=== PATIENT | male | born 1970 ===

== ENCOUNTER 2020-05-31 20:36 | Emergency (ER) | payer OTHER ==
[2020-05-31 20:46] VITALS: BP 136/74
--- NOTE | 2020-05-31 21:05 | ED Physician Documentation ---
PD HPI OPHTHO - Stated complaint Stated Complaint: RT EYE PX - Chief complaint Chief Complaint: Heent - History obtained from History obtained from: Patient - History of Present Illness Timing - onset: Enter time (17:00), Today Timing - details: Intermittant Pain level now: 2 Location: Right Quality / character: Other (FB sensation) Associated symptoms: FB sensation Contributing factors: Wears glasses. No: Wears contacts Similar symptoms before: Has not had sx before Recently seen: Not recently seen - Additional information Additional information: c/o gradual onset FB sensation right eye today 5 PM while mowing his lawn Review of Systems Constitutional: denies: Fever Eyes: reports: Irritation. denies: Loss of vision, Decreased vision, Photophobia, Discharge PD PAST MEDICAL HISTORY - Past Medical History Past Medical History: No - Past Surgical History Past Surgical History: Yes - Present Medications Home Medications: Ambulatory Orders Medication Instructions Recorded Confirmed Erythromycin Base [Erythromycin 1 applic RIGHTEYE QID #1 oint...g. 05/31/20 Ophthalmic Ointment] - Allergies Allergies/Adverse Reactions: Allergies Allergy/AdvReac Type Severity Reaction Status Date / Time No Known Drug Allergies Allergy Verified 05/31/20 20:52 - Social History Does the pt smoke?: Yes Smoking Status: Current every day smoker Does the pt drink ETOH?: Yes Does the pt have substance abuse?: No - Immunizations Immunizations are current?: Yes PD ED PE NORMAL - Vitals Vital signs reviewed: Yes - General General: Alert and oriented X 3, No acute distress, Well developed/nourished - HEENT HEENT: PERRL, EOMI, Moist mucous membranes PD ED PE EXPANDED - Eyes Eyes: Injected conj/sclera (right eye), Fluorescein uptake (crescentic, small uptake at 9 0'clock position right eye). No: Conj/sclera FB Results - Vitals Vitals: Vital Signs - 24 hr 05/31/20 20:44 Temperature 36.6 C Heart Rate 81 Respiratory 20 Rate Blood Pressure 136/74 H O2 Saturation 97 PD MEDICAL DECISION MAKING - ED course Complexity details: considered differential, d/w patient Departure - Departure Disposition: 01 Home, Self Care Clinical Impression: Corneal abrasion Qualifiers: Encounter type: initial encounter Laterality: right Qualified Code(s): S05.01XA - Injury of conjunctiva and corneal abrasion without foreign body, right eye, initial encounter Condition: Good Instructions: ED Eye Injury Corneal Abrasion Prescriptions: Erythromycin Base [Erythromycin Ophthalmic Ointment] 1 applic JONN BRIAN #1 oint...g. Comments: Follow up with an fiscal assistant within 3-5 days for recheck. If you cannot arrange an appointment, you can follow up with your primary care physician instead. Discharge Date/Time: 05/31/20 21:45
[2020-05-31] MEDS ORDERED: PROPARACAINE 0.5% OPHTH DROPS 15 ML RIGHTEYE STA (21:08)
[2020-05-31] MEDS ORDERED: ERYTHROMYCIN OPHTH OINT 1 GM TUBE RIGHTEYE STA (21:32)
== END 2020-05-31 21:45 | disposition home or self-care (01) ==
LOC: ED 20:36
DX: S05.01XA Injury of conjunctiva and corneal abrasion without foreign body, right eye, initial encounter (principal); X58.XXXA Exposure to other specified factors, initial encounter; Y93.H2 Activity, gardening and landscaping; F17.200 Nicotine dependence, unspecified, uncomplicated
CPT/HCPCS: 99282; 99283; J3490